=== PATIENT | male | born 1990 | race Native Hawaiian/Other Pacific Islander ===

== ENCOUNTER 2018-11-13 23:56 | Emergency (ER) | payer OTHER ==
[~2018-11-13] VITALS: Ht 177.8 cm; Wt 74.8 kg
[2018-11-14 00:39] LABS: PLATELET COUNT 182 K/uL (142-355)
[2018-11-14 00:53] LABS: POTASSIUM 3.9 mmol/L (3.6-5.2)
[2018-11-14 04:10] VITALS: BP 111/77; TEMP 99.1
== END 2018-11-14 04:10 | disposition home or self-care (01) ==
LOC: ED 23:56
PROVIDERS: Emergency Medicine
DX: K62.5 Hemorrhage of anus and rectum (principal)
CPT/HCPCS: 36415; 80053; 82272; 85027; 96374; 99284; Q9963